=== PATIENT | female | born 1975 | race American Indian/Alaskan Native ===

== ENCOUNTER 2017-08-26 06:22 | Day surgery (SDC) | payer OTHER ==
[2017-08-24 11:12] LABS: Basophils % (Auto) 0.8 % (0.0-1.8); Eosinophils % (Auto) 1.9 % (0.0-4.3); Hematocrit 35.6 % (30.3-42.9); Hemoglobin 11.6 gm/dl (10.1-14.3); Mean Corpuscular HGB Conc 33 % (30-34); Mean Corpuscular Hemoglobin 26 pg (28-32); Mean Corpuscular Volume 81 fl (79-97); Platelet Count 258 K/mm3 (140-440); Red Blood Count 4.42 M/mm3 (3.65-5.03); Red Cell Distribution Width 16.9 % (13.2-15.2)
--- NOTE | 2017-08-24 11:17 | Anesthesia Consultation ---
Anesthesia Consult and Med Hx Date of service: 08/26/17 - Airway Anesthetic Teeth Evaluation: Poor ROM Head & Neck: Adequate Mental/Hyoid Distance: Adequate Mallampati Class: Class I Intubation Access Assessment: Good - Pulmonary Exam CTA: Yes - Cardiac Exam Cardiac Exam: RRR - Pre-Operative Health Status ASA Pre-Surgery Classification: ASA2 Proposed Anesthetic Plan: General - Pulmonary Hx Smoking: Yes (cigars, marijuana occasionally) - Hematic Hx Anemia: Yes - Additional Comments Anesthesia Medical History Comments: NAC, previously. This will be first general anesthetic.
--- NOTE | 2017-08-25 21:41 | Short Stay Summary ---
Short Stay Documentation Date of service: 08/26/17 Narrative H&P: 42y/o with a history of abnormal uterine bleeding. The patient had an embx with benign findings. The patient was offered medical management and has elected for surgical intervention. Patient has been reassessed/reevaluated/re-examined. H&P has been reviewed. No interval changes. - History Principal diagnosis: dysfunctional uterine bleeding Past Medical History: No medical history Past Surgical History: , Other (tubal ligation) Social history: single - Allergies and Medications Current Medications: Allergies No Known Allergies Allergy (Unverified 08/17/17 17:07) Home Medications Medication Instructions Recorded Confirmed Last Taken Type No Known Home Medications [No 08/17/17 08/17/17 Unknown History Reported Home Medications] Active Medications Famotidine (Pepcid) 20 mg IV PREOP NR Stop: 08/26/17 23:59 Sodium Chloride (Nacl 0.9% 1000 Ml) 1,000 mls @ 42 mls/hr IV DIRECT ANA LAURA Stop: 08/26/17 23:59 Midazolam HCl (Versed) 2 mg IV PREOP PRN PRN Reason: Agitation Stop: 08/26/17 23:59 - Physical exam General appearance: no acute distress Integumentary: no rash HEENT: Atraumatic Lungs: Clear to auscultation Breasts: deferred Heart: Regular rate Gastrointestinal: normal Female Genitourinary: deferred Rectal Exam: deferred - Brief post op/procedure progress note Date of procedure: 08/26/17 Pre-op diagnosis: dysfunctional uterine bleeding Post-op diagnosis: same Procedure: Hysteroscopy Endometrial ablation via NovaSure Anesthesia: GETA Surgeon: BRIAN RYDER Estimated blood loss: minimal Pathology: none Condition: stable - Hospital course Hospital course: The patient was admitted the day of surgery and underwent a hysteroscopy endometrial ablation via NovaSure. Please see operative note for details of surgery. Postoperative course was uneventful. - Disposition Condition at discharge: Good Disposition: [id number] TO HOME OR SELFCARE Short Stay Discharge Plan Activity: other (pelvic rest for 1 week) Diet: regular Additional Instructions: Patient may follow up with Dr. Ryder in 2-4 weeks Prescriptions: Ibuprofen [Motrin] 800 mg PO Q8HR PRN #60 tablet PRN Reason: Pain oxyCODONE /ACETAMINOPHEN [Percocet 5/325] 1 tab PO Q6HR PRN #30 tablet PRN Reason: Pain
[~2017-08-26 06:22] MED LIST: NACL 0.9% 1000 ML 1,000 ML IV SCH; PEPCID IV NR; VERSED IV PRN
--- NOTE | 2017-08-26 07:31 | Anesthesia Day of Surgery ---
Anesthesia Day of Surgery - Day of Surgery Patient Examined: Yes Patient H&P Reviewed: Yes Patient is NPO: Yes
[2017-08-26] MEDS ORDERED: ZOFRAN IV PRN ×2 (08:30→11:00)
[2017-08-26] MEDS ORDERED: PERCOCET 5/325 PO PRN ×2 (08:30→11:00)
[2017-08-26] MEDS ORDERED: SUBLIMAZE ONE (08:36)
[2017-08-26] MEDS ORDERED: XYLOCAINE MPF 2% ONE (08:36)
[2017-08-26] MEDS ORDERED: DIPRIVAN 10 MG/ML IV ONE (08:36)
[2017-08-26] MEDS ORDERED: DECADRON ONE (08:38)
[2017-08-26] MEDS ORDERED: ZOFRAN ONE (08:38)
[2017-08-26] MEDS ORDERED: TORADOL ONE ×2 (09:12→10:19)
[2017-08-26] MEDS ORDERED: NACL 0.9% IR ONE (09:15)
--- NOTE | 2017-08-26 09:27 | Operative Report ---
Operative Report Operative Report: Date of procedure: 08/26/2017 Pre-operative diagnosis: Dysfunctional uterine bleeding Post-operative diagnosis: Same as above Procedure name(s): Hysteroscopy; endometrial ablation via NovaSure Surgeon: Monik Hernandez M.D. Bariatric Coordinator: None Anesthesia: General endotracheal anesthesia Findings normal endometrial cavity Indication: 42-year-old 002 with dysfunctional uterine bleeding. The patient has elected to undergo surgical management of her symptoms. Procedure The patient was taken to the operating room and given general tracheal anesthesia without complication. The patient was prepped and draped in a normal sterile fashion. A bivalve speculum was placed in the patient's vagina single-tooth tenaculums placed on the anterior lip of the cervix. The cervical os was dilated with graduated dilators. A uterine sound was inserted. The hysteroscope was then placed. Insufflation of the uterine cavity was performed with normal saline. Gen. survey of the uterine cavity revealed normal endometrial cavity, the ostia were identified bilaterally. The hysteroscope was then removed. The NovaSure device was then inserted. The endometrial length was 5.0 cm and the uterine width was 4.3 cm. The device was engaged and it passed the surveillance of the uterine cavity. The NovaSure device was then deployed with a energy of 118 W that lasted for 1 minute 28 seconds. The NovaSure device was then removed. The hysteroscope was again reinserted. There was evidence of charring of the endometrial surface. The remainder of the vaginal instruments were then removed atraumatically. The patient was then successfully extubated taken to the recovery room. All sponge laps and needle counts were correct 2.
[2017-08-26] MEDS: DILAUDID IV PRN ×3 (09:44→10:08)
[2017-08-26] MEDS ORDERED: TRANSDERM-SCOP TD PRN (11:00)
[2017-08-26 11:08] VITALS: BP 132/65
--- NOTE | 2017-08-26 19:30 | Post Anesthesia Evaluation ---
- Post Anesthesia Evaluation Patient Participated: Yes Airway Patent: Yes Stable Respiratory Function: Yes Nausea/Vomiting: No Temp > 96.8F: Yes Pain Manageable: Yes Adequeate Hydration: Yes Anesthesia Complications: No Block Receding Appropriately: Not Applicable Patient on Ventilator: No
== END 2017-08-26 12:08 | disposition home or self-care (01) ==
LOC: OR 06:22
PROVIDERS: ATTEND Obstetrics & Gynecology
DX: N93.8 Other specified abnormal uterine and vaginal bleeding (principal); K21.9 Gastro-esophageal reflux disease without esophagitis; F17.210 Nicotine dependence, cigarettes, uncomplicated; Z98.51 Tubal ligation status; Z98.890 Other specified postprocedural states; Z79.899 Other long term (current) drug therapy
CPT/HCPCS: 36415; 58563; 82962; 84703; 85025; A4217; J1100; J1170; J1885; J2250; J2405; J2704; J3010; J7030